=== PATIENT | male | born 1955 ===

== ENCOUNTER 2018-07-25 12:59 | Inpatient (IN) | payer OTHER ==
[2018-07-25 13:34] VITALS: BMI 31.6
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
[2018-07-25 14:47] LABS: BASO # 0.03 K/mm3 (0.0-2.0); BASO % 0.4 % (0.0-3.0); EOS # 0.1 (0.0-0.7); EOS % 1.4 % (1.5-5.0); HEMOGLOBIN 13.7 g/dL (14.0-18.0); LYMPH # 1.4 (1.2-3.4); LYMPH % 18.9 % (22.0-35.0); MEAN CORPUSCULAR HEMOGLOBIN 27.1 pg (25.0-35.0); MEAN CORPUSCULAR HGB CONC 32.7 g/dl (31.0-37.0); MEAN PLATELET VOLUME 9.1 fl (7.0-11.0); MONO # 0.6 (0.1-0.6); MONO % 7.8 % (1.0-6.0); RBC 5.05 10^6/uL (3.5-6.1); RED CELL DISTRIBUTION WIDTH 13.6 % (11.5-14.5); WHITE BLOOD COUNT 7.3 10^3/uL (4.5-11.0)
[2018-07-25 14:58] LABS: ALBUMIN 4.2 g/dL (3.0-4.8); ALT/SGPT 50 U/L (7-56); AST/SGOT 41 U/L (17-59); BLOOD UREA NITROGEN 16 mg/dL (7-21); CALCIUM 9.8 mg/dL (8.4-10.5); GFR NON-AFRICAN AMERICAN > 60
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
[2018-07-25 15:15] LABS: TROPONIN I < 0.01 ng/mL
[2018-07-25] MEDS ORDERED: Influenza Vaccine 60 mcg/0.5 mL SYR (4YR UP) IM ONE (22:21)
[2018-07-25] MEDS ORDERED: Pneumococcal 23-Valent Vaccine IM ONE (22:21)
--- NOTE | 2018-07-25 23:18 | CARD ---
APPROVED REPORT Date of service: 07/25/2018 EKG Measurement Heart Perd21ATST NE [id number] <Conclusion> Poor data quality, interpretation may be adversely affected Normal sinus rhythm Minimal voltage criteria for LVH, may be normal variant Borderline ECG
[2018-07-26] MEDS: Insulin Reg-MEDIUM-Coverage SC SCH ×3 (12:40→22:00)
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
--- NOTE | 2018-07-26 15:22 | CARD ---
APPROVED REPORT Date of service: 07/26/2018 EXAM: Two-dimensional and M-mode echocardiogram with Doppler and color Doppler. INDICATION SYCOPE 2D DIMENSIONS Left Atrium (2D)3.3 (1.6-4.0cm)IVSd1.5 (0.7-1.1cm) LVDd5.2 (3.9-5.9cm)LVOT Diameter2.3 (1.8-2.4cm) PWd1.3 (0.7-1.1cm)LVDs3.7 (2.5-4.0cm) FS (%) 29.0 %LVEF (%)55.4 (>50%) M-Mode DIMENSIONS Aortic Root3.80 (2.2-3.7cm)Aortic Cusp Exc.1.60 (1.5-2.0cm) Aortic Valve AoV Peak Yxjnnayj020.0cm/Carroll Peak GR.11mmHgAI P 1/2 Tgie261zv Mitral Valve MV E Cficpdps21.3cm/sMV A Utiralgt27.9cm/sE/A ratio0.6 TDI Lateral E' Peak V6.92cm/sMedial E' Peak V4.58cm/sE/Lateral E'7.6 E/Medial E'11.4 Tricuspid Valve TR Peak Flwemjyf683mg/sRAP [id number] Peak Gr.20mmHg [id number] LEFT VENTRICLE The left ventricle is normal size. There is mild to moderate concentric left ventricular hypertrophy. The left ventricular function is normal. The left ventricular ejection fraction is within the normal range. There is normal LV segmental wall motion. Transmitral Doppler flow pattern is Grade I-abnormal relaxation pattern. RIGHT VENTRICLE The right ventricle is normal size. There is normal right ventricular wall thickness. The right ventricular systolic function is normal. ATRIA The left atrium size is normal. The right atrium size is normal. AORTIC VALVE The aortic valve is moderately sclerotic. There is trace to mild aortic regurgitation. There is no aortic valvular stenosis. MITRAL VALVE The mitral valve is moderately thickened. There is no mitral valve regurgitation noted. There is no mitral valve stenosis. TRICUSPID VALVE There is trace tricuspid regurgitation. GREAT VESSELS The aortic root is mildly enlarged. PERICARDIAL EFFUSION There is a trace pericardial effusion. <Conclusion> There is mild to moderate concentric left ventricular hypertrophy. The left ventricular function is normal. The left ventricular ejection fraction is within the normal range. There is normal LV segmental wall motion. Transmitral Doppler flow pattern is Grade I-abnormal relaxation pattern. There is trace to mild aortic regurgitation.
--- NOTE | 2018-07-26 21:31 | US ---
PROCEDURE: Bilateral carotid artery duplex ultrasound HISTORY: Carotid stenosis PHYSICIAN(S): Riky Titus MD. TECHNIQUE: Duplex sonography and color-flow Doppler were used to evaluate the carotid bifurcations and limited segments of the vertebral arteries bilaterally. FINDINGS: There is mild smooth heterogeneous plaque noted at the carotid bifurcations bilaterally. The peak systolic velocity in the proximal right internal carotid artery is 69 cm/sec. This corresponds to a 20 to 39% proximal right ICA stenosis. Normal systolic velocities are noted in the proximal right external carotid artery. There is antegrade flow in the right vertebral artery. The peak systolic velocity in the proximal left internal carotid artery is 91 cm/sec. This corresponds to a 20 to 39% proximal left ICA stenosis. Normal systolic velocities are noted in the proximal left external carotid artery. There is antegrade flow in the left vertebral artery. IMPRESSION: 1. Bilateral 20-39% proximal ICA stenoses. 2. Antegrade flow in both vertebral arteries.
[2018-07-27 06:21] LABS: BASO # 0.05 K/mm3 (0.0-2.0); BASO % 0.7 % (0.0-3.0); EOS # 0.3 (0.0-0.7); EOS % 4.4 % (1.5-5.0); LYMPH # 1.7 (1.2-3.4); LYMPH % 24.8 % (22.0-35.0); MEAN CELL VOLUME 82.8 fl (80.0-105.0); MEAN CORPUSCULAR HEMOGLOBIN 26.9 pg (25.0-35.0); MEAN CORPUSCULAR HGB CONC 32.5 g/dl (31.0-37.0); MEAN PLATELET VOLUME 8.9 fl (7.0-11.0); MONO # 0.6 (0.1-0.6); RBC 4.83 10^6/uL (3.5-6.1); RED CELL DISTRIBUTION WIDTH 13.3 % (11.5-14.5)
[2018-07-27 06:33] LABS: ALB/GLOB RATIO 0.9 (1.1-1.8); ALBUMIN 3.5 g/dL (3.0-4.8); ALT/SGPT 45 U/L (7-56); AST/SGOT 45 U/L (17-59); BLOOD UREA NITROGEN 22 mg/dL (7-21); CALCIUM 9.2 mg/dL (8.4-10.5); GFR NON-AFRICAN AMERICAN > 60
[2018-07-27] MEDS: Insulin Reg-MEDIUM-Coverage SC SCH ×4 (09:24→21:56)
[2018-07-27] MEDS ORDERED: levETIRAcetam 1000mg/100ml NS 100 ML IV ONE (16:41)
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
[2018-07-28 05:48] VITALS: O2SAT 97
[2018-07-28 06:26] LABS: BASO # 0.05 K/mm3 (0.0-2.0); BASO % 0.7 % (0.0-3.0); EOS # 0.2 (0.0-0.7); EOS % 3.1 % (1.5-5.0); HEMOGLOBIN 12.3 g/dL (14.0-18.0); LYMPH # 2.2 (1.2-3.4); MEAN CELL VOLUME 82.6 fl (80.0-105.0); MEAN CORPUSCULAR HEMOGLOBIN 26.7 pg (25.0-35.0); MEAN CORPUSCULAR HGB CONC 32.3 g/dl (31.0-37.0); MEAN PLATELET VOLUME 8.7 fl (7.0-11.0); MONO # 0.5 (0.1-0.6); RBC 4.61 10^6/uL (3.5-6.1); RED CELL DISTRIBUTION WIDTH 13.5 % (11.5-14.5); WHITE BLOOD COUNT 7.6 10^3/uL (4.5-11.0)
[2018-07-28 06:34] LABS: ALB/GLOB RATIO 0.9 (1.1-1.8); ALBUMIN 3.5 g/dL (3.0-4.8); ALT/SGPT 37 U/L (7-56); AST/SGOT 46 U/L (17-59); BLOOD UREA NITROGEN 18 mg/dL (7-21); CALCIUM 9.3 mg/dL (8.4-10.5); GFR NON-AFRICAN AMERICAN > 60
[2018-07-28] MEDS: Insulin Reg-MEDIUM-Coverage SC SCH ×3 (10:06→17:45)
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
[2018-07-28 12:25] VITALS: RESP 21
--- NOTE | 2018-07-28 15:37 | CP.PCM.PN ---
<Saadia Herron - Last Filed: 07/28/18 15:41> Subjective - Date & Time of Evaluation Date of Evaluation: 07/28/18 Time of Evaluation: 10:00 - Subjective Subjective: PGY-2 neurology progress note for Dr. Thacker's service Patient seen and examined at bedside. No acute distress. Patient has no complaints at this time. 12 point ROS is negative except at states. Objective - Vital Signs/Intake and Output Vital Signs (last 24 hours): Temp Pulse Resp BP Pulse Ox 97.5 F L 77 21 136/90 97 07/28/18 12:00 07/28/18 12:00 07/28/18 12:00 07/28/18 12:00 07/28/18 05:47 Intake and Output: 07/28/18 07/28/18 06:59 18:59 Intake Total 180 Balance 180 - Medications Medications: Current Medications Aspirin (Aspirin Chewable) 81 mg PO DAILY [facility] Last Admin: 07/28/18 10:09 Dose: 81 mg Atorvastatin Calcium (Lipitor) 40 mg PO DIN [facility] Last Admin: 07/27/18 17:32 Dose: 40 mg Clopidogrel Bisulfate (Plavix) 75 mg PO DAILY [facility] Last Admin: 07/28/18 10:09 Dose: 75 mg Insulin Human Regular (Humulin R Med) 0 units SC [facility]; Protocol Last Admin: 07/28/18 12:41 Dose: 1 unit Levetiracetam (Keppra) 500 mg PO BID [facility] Last Admin: 07/28/18 10:09 Dose: 500 mg Lisinopril (Zestril) 10 mg PO DAILY [facility] Last Admin: 07/28/18 10:09 Dose: 10 mg - Labs Labs: 07/28/18 06:00 07/28/18 06:00 - Constitutional Appears: Well, No Acute Distress - Head Exam Head Exam: ATRAUMATIC, NORMAL INSPECTION, NORMOCEPHALIC - Eye Exam Eye Exam: EOMI, Normal appearance - ENT Exam ENT Exam: Mucous Membranes Moist - Respiratory Exam Respiratory Exam: NORMAL BREATHING PATTERN. absent: Respiratory Distress - Cardiovascular Exam Cardiovascular Exam: REGULAR RHYTHM, RRR - Extremities Exam Extremities Exam: Normal Inspection. absent: Pedal Edema, Tenderness - Neurological Exam Neurological Exam: Alert, Awake, Oriented x3 Neuro motor strength exam: Left Upper Extremity: 5, Right Upper Extremity: 5, Left Lower Extremity: 5, Right Lower Extremity: 5 Additional comments: Patient oriented to: person, place, time Speech: Fluid Speech Cranial nerves: EOM's Intact: Normal, Facial Palsey w/Forehead Movement: Normal, Facial Palsey w/o Forehead Movement: Normal, Ataxia: No Coma Scale Eye Opening: SPONTANEOUS Coma Scale Motor Response: OBEYS COMMANDS Coma Scale Verbal: Oriented Coma Scale Total: 15 - Skin Skin Exam: Dry, Intact, Normal Color, Warm Assessment and Plan - Assessment and Plan (Free Text) Assessment: 63 yo old male with PMH of CVA with residual left sided weakness, diabetes, HTN, CAD admitted for probable seizure. Plan: - Will follow up EEG - Patient received loading dose of IV keppra 1000 mg, continue 500 mg bid - Carotid US showed 20-39% stenosis - Patient instructed to not drive and follow up with neurology in 2 weeks Case discussed with Dr. Thacker <Courtney Thacker - Last Filed: 07/28/18 23:43> Objective - Vital Signs/Intake and Output Vital Signs (last 24 hours): Temp Pulse Resp BP Pulse Ox 98.7 F 85 21 143/94 H 97 07/28/18 18:00 07/28/18 18:00 07/28/18 18:00 07/28/18 18:00 07/28/18 05:47 - Labs Labs: 07/28/18 06:00 07/28/18 06:00 Assessment and Plan - Assessment and Plan (Free Text) Assessment: EEG: read by me : Normal background, no interictal discharges notd. no seizures. Mr Fletcher is a 63 yr old male who most likely had seizure with MCA stroke as focus. he will need to be on Keppra and driving restrictions until we repeat Video EEG to assure he has no interictal discharges. HE is stable to go home. I examined the patient independently and with the resident and formulated the assessment and plan. All medical record entries made by the Resident were at my direction and personally dictated by me. I have reviewed the chart and agree that the record accurately reflects my personal performance of the history, physical exam, medical decision making, and the department course for this patient. I have also personally directed, reviewed, and agree with the discharge instructions and disposition. Dr. Thacker Neurology
[2018-07-28 18:37] VITALS: BP 143/94; PULSE 85; TEMP 98.7
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
== END 2018-07-28 19:15 | disposition home or self-care (01) | DRG 101 ==
LOC: ED 12:59 → ERH 15:20 → 2RNO 20:58 → OBSVTOIN 07-26 08:03
PROVIDERS: ADMIT Internal Medicine; ATTEND Internal Medicine
DX: R56.9 Unspecified convulsions (principal); I69.354 Hemiplegia and hemiparesis following cerebral infarction affecting left non-dominant side; R55 Syncope and collapse; E11.9 Type 2 diabetes mellitus without complications; E78.00 Pure hypercholesterolemia, unspecified; E78.5 Hyperlipidemia, unspecified; G93.89 Other specified disorders of brain; I10 Essential (primary) hypertension; I25.10 Atherosclerotic heart disease of native coronary artery without angina pectoris; I25.2 Old myocardial infarction; R29.810 Facial weakness; R47.1 Dysarthria and anarthria; L40.9 Psoriasis, unspecified; M54.17 Radiculopathy, lumbosacral region; R41.2 Retrograde amnesia; Z79.82 Long term (current) use of aspirin; Z87.891 Personal history of nicotine dependence; Z95.5 Presence of coronary angioplasty implant and graft